=== PATIENT | female | born 1975 | race Caucasian/White ===

== ENCOUNTER 2018-05-29 04:24 | Inpatient (IN) ==
[2018-05-29] MEDS ORDERED: Morphine Inj 4 MG/ML Vial IM ONE (05:00)
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
[2018-05-29 06:30] LABS: Baso # (Auto) 0.1 th/mm3 (0.0-0.2); Baso % (Auto) 0.4 % (0.0-2.0); Eos % (Auto) 0.3 % (0.0-4.0); Hematocrit 42.2 % (35.0-46.0); Hemoglobin 14.9 gm/dL (11.6-15.3); Lymph % (Auto) 14.7 % (9.0-44.0); Mean Corpuscular HGB Conc 35.2 % (32.0-36.0); Mean Corpuscular Hemoglobin 33.1 pg (27.0-34.0); Mean Corpuscular Volume 94.2 fL (80.0-100.0); Mean Platelet Volume 8.1 fL (7.0-11.0); Mono # (Auto) 1.1 th/mm3 (0.0-0.9); Mono % (Auto) 8.2 % (0.0-8.0); Neut # (Auto) 10.2 th/mm3 (1.8-7.7); Neut % (Auto) 76.4 % (16.0-70.0); Platelet Count 250 th/mm3 (150-450); Red Blood Count 4.49 mil/mm3 (4.00-5.30); Red Cell Distribution Width 13.7 % (11.6-17.2); White Blood Count 13.4 th/mm3 (4.0-11.0)
[2018-05-29] MEDS ORDERED: Temazepam 15 MG Capsule PO PRN (07:12)
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
[2018-05-29 10:01] LABS: Amylase 26 U/L (25-115); Lipase 136 U/L (73-393)
[2018-05-29 10:04] LABS: Albumin 3.9 g/dL (3.4-5.0); Anion Gap 10 meq/L (5-15); Aspartate Aminotransferase 202 U/L (15-37); Blood Urea Nitrogen 12 mg/dL (7-18); Calcium 9.1 mg/dL (8.5-10.1); Carbon Dioxide 22.5 meq/L (21.0-32.0); Chloride 108 meq/L (98-107); Glomerular Filtration Rate Greater Than 89 mL/min (>89); Glucose,Random 93 mg/dL (74-106); Potassium 3.4 meq/L (3.5-5.1); Sodium 140 meq/L (136-145)
[2018-05-29 10:05] LABS: Alanine Aminotransferase 319 U/L (10-53)
[2018-05-29 10:07] LABS: Alkaline Phosphatase 53 U/L (45-117); Total Protein 7.6 g/dL (6.4-8.2)
[2018-05-29] MEDS: oxyCODONE/Acetaminophen 10/325 Tablet PO PRN ×2 (11:35→21:29)
[2018-05-29] MEDS: Morphine Inj 4 MG/ML Vial IV.PUSH PRN (11:35)
[2018-05-29] MEDS ORDERED: Lidocaine PF 1% Inj 5 ML Syringe INFILTRATN ONE (12:00)
[2018-05-29] MEDS ORDERED: Succinylcholine Inj 100 MG/5 ML Syringe IV.PUSH ONE (12:00)
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
[2018-05-29] MEDS ORDERED: Propofol Inj 500 MG/50 ML Vial ONE (13:38)
[2018-05-29] MEDS ORDERED: Ketamine Inj 500 MG/10 ML Vial ONE (13:39)
[2018-05-29] MEDS: Thrombin Topical Soln 5,000 UNIT Vial TOPICAL ONE (15:09)
[2018-05-29] MEDS: Bupivacaine/Epinephrine 0.5% Inj 50 ML Vial ONE (15:10)
[2018-05-29] MEDS: Lidocaine 1% Inj 50 ML Vial ONE (15:10)
[2018-05-29] MEDS: Gelatin Size 100 Topical Foam ONE (15:10)
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
[2018-05-29] MEDS ORDERED: fentaNYL Citrate Inj 100 MCG/2 ML Ampul ONE (18:34)
[2018-05-29] MEDS ORDERED: Morphine Inj 4 MG/ML Vial ONE (18:34)
[2018-05-29] MEDS ORDERED: *Meperidine Inj 25 MG/ML Vial PERIprocedural Use ONLY ONE (18:37)
[2018-05-29] MEDS ORDERED: *morphine SULFATE 10 MG/ML PERIprocedure ONLY ONE (18:52)
--- NOTE | 2018-05-29 18:52 | P.OP ---
- Preoperative Diagnosis (1) Closed compression fracture of lumbar vertebra (2) Closed compression fracture of thoracic vertebra Preoperative Diagnosis: L1 burst fracture with retropulsion and right leg pain and weakness Postoperative Diagnosis: L1 burst fracture with retropulsion and right leg pain and weakness Date of procedure: 05/29/18 Procedure: T11 to L3 posterior spinal fusion L1 laminectomy Helvetia Caplux System, 6.5 x 40 screws at T11, otherwise 6.5 x 45 screws skipping right L1 Titanium Galen 160mm bilaterally, Rods 5.5 system, 10cc bonegraft DBX with corticocancellous and autograft Anesthesia: JASWINDER Surgeon: Carlos Maza MD Estimated blood loss (mL): 400 Operation and Findings: Description of Procedure. Patient was brought to [facility]4 and the procedure was done under general anesthesia. Patient placed prone on the OSI bed with pads. Mid thoracolumbar spine was prepped and draped in the usual sterile fashion after carefully padding all pressure points. Fluoroscopy was used to plan incision from T11 to L3. Midline incision infiltrated with local, then opened sharply. Subperiosteal dissection carried down T11 to L3 bilaterally using monopolar cautery. Monitoring was used with MEP, SSEP and pedicle screw with baselines taken prior to flip and maintained throughout the procedure without change. Pedicle screws placed using the drill screw tap method starting at left T11 moving down to right L3, skipping right L1 due to the fracture. Pedicle screw monitoring was employed and due to low thresholds at left L1, right L2, left L3 , these were made more lateral with the final left L3 screw looking lateral, yet having good purchase. After securing rods and cap screws, L1 laminectomy performed with clear instability noted of right sided L1 facet joint which was decompressed to probe free nerve root and central canal at this level. Gelfoam placed over the exposed dura after irrigating with Vancomycin irrigation, and bone graft with DBX placed over the rods, followed by two drains exiting inferiorly and secured to the skin with nylon. Wound closed in layers with 0- Vicryl and 2-0 Vicryl for deep muscle fascia, superficial fascia, subcutaneous and verona for skin. Sterile dressings applied. Patient returned supine, extubated and taken to recovery in stable condition with same baseline exam ( right leg proximally grade 4/5 and remainder three limbs full strength). Dr. Maza present and scrubbed for the entire procedure.
[2018-05-29] MEDS ORDERED: *morphine SULFATE 4 MG/ML PERIprocedure ONLY ONE (19:16)
[2018-05-29 19:29] LABS: Albumin 2.3 g/dL (3.4-5.0); Total Protein 4.9 g/dL (6.4-8.2)
[2018-05-29 20:11] LABS: Amorphous Sediment,Urine Few /hpf; Bacteria,Urine Rare /hpf; Bilirubin,Urine Negative (Negative); Clarity,Urine Cloudy (Clear); Color,Urine Amber (Yellw/Straw); Glucose,Urine (UA) Negative (Negative); Leukocyte Esterase,Urine Negative (Negative); Mucus,Urine Few /lpf (Occasional); Nitrite,Urine Negative (Negative); Specific Gravity,Urine 1.049 (1.002-1.035); Squamous Epithelial Cell,Urine <1 /hpf (0-5)
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
[2018-05-30] MEDS: oxyCODONE/Acetaminophen 10/325 Tablet PO PRN ×4 (03:43→19:03)
[2018-05-30] MEDS: Bupivacaine/Epinephrine 0.5% Inj 50 ML Vial ONE (03:55)
[2018-05-30] MEDS: Thrombin Topical Soln 5,000 UNIT Vial TOPICAL ONE (03:56)
[2018-05-30] MEDS: Gelatin Size 100 Topical Foam ONE (03:56)
[2018-05-30] MEDS: Lidocaine 1% Inj 50 ML Vial ONE (03:56)
[2018-05-30 04:53] LABS: Alanine Aminotransferase 228 U/L (10-53); Albumin 3.1 g/dL (3.4-5.0); Alkaline Phosphatase 43 U/L (45-117); Anion Gap 9 meq/L (5-15); Aspartate Aminotransferase 137 U/L (15-37); Blood Urea Nitrogen 10 mg/dL (7-18); Calcium 7.9 mg/dL (8.5-10.1); Carbon Dioxide 22.4 meq/L (21.0-32.0); Chloride 107 meq/L (98-107); Glomerular Filtration Rate Greater Than 89 mL/min (>89); Glucose,Random 91 mg/dL (74-106); Potassium 4.5 meq/L (3.5-5.1); Total Protein 6.7 g/dL (6.4-8.2)
[2018-05-30 04:54] LABS: Sodium 138 meq/L (136-145)
[2018-05-30] MEDS: Morphine Inj 4 MG/ML Vial IV.PUSH PRN ×5 (06:49→23:16)
[2018-05-30] MEDS: Senna/Docusate Sodium 8.6/50 MG Tablet PO SCH ×2 (08:52→20:10)
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
[2018-05-30 11:13] LABS: Baso % (Auto) 0.3 % (0.0-2.0); Eos % (Auto) 0.1 % (0.0-4.0); Hematocrit 38.4 % (35.0-46.0); Hemoglobin 13.2 gm/dL (11.6-15.3); Lymph # (Auto) 2.4 th/mm3 (1.0-4.8); Lymph % (Auto) 15.4 % (9.0-44.0); Mean Corpuscular HGB Conc 34.4 % (32.0-36.0); Mean Corpuscular Volume 95.9 fL (80.0-100.0); Mean Platelet Volume 8.6 fL (7.0-11.0); Mono # (Auto) 1.4 th/mm3 (0.0-0.9); Mono % (Auto) 8.7 % (0.0-8.0); Neut # (Auto) 11.7 th/mm3 (1.8-7.7); Neut % (Auto) 75.5 % (16.0-70.0); Platelet Count 231 th/mm3 (150-450); Red Blood Count 4.01 mil/mm3 (4.00-5.30); Red Cell Distribution Width 13.4 % (11.6-17.2); White Blood Count 15.5 th/mm3 (4.0-11.0)
--- NOTE | 2018-05-30 12:35 | P.PNNS ---
Subjective Interval history: Doing well after surgery. Right leg pain and mobility improved. Now has back pain from surgery. Physical Exam Vital signs: Vital Signs 05/29/18 13:25 05/29/18 18:25 05/29/18 18:30 Temperature 97.4 F L Pulse Rate 90 94 H 94 H Respiratory Rate 21 16 16 Blood Pressure 107/88 99/61 L 103/65 Pulse Oximetry 98 96 95 05/29/18 18:45 05/29/18 19:00 05/29/18 20:00 Temperature Pulse Rate 92 H 94 H 91 H Respiratory Rate 16 16 16 Blood Pressure 115/77 119/84 122/86 Pulse Oximetry 99 98 96 05/29/18 22:00 05/29/18 22:55 05/30/18 00:00 Temperature 99.1 F 98.7 F Pulse Rate 94 H 95 H Respiratory Rate 19 24 Blood Pressure 122/81 113/74 Pulse Oximetry 97 94 L 96 05/30/18 04:00 05/30/18 08:00 05/30/18 08:10 Temperature 98.3 F 98 F Pulse Rate 84 88 Respiratory Rate 18 Blood Pressure 126/61 115/76 Pulse Oximetry 98 100 05/30/18 09:56 05/30/18 12:00 Temperature 98 F Pulse Rate 88 Respiratory Rate 19 18 Blood Pressure 111/65 Pulse Oximetry 96 Intake & Output 05/29/18 05/30/18 05/30/18 18:59 06:59 18:59 Intake Total 2300 / 2300 360 / 360 Output Total 1500 / 1500 1230 / 1230 110 / 110 Balance 800 / 800 -1230 / -1230 250 / 250 Weight 95.1 kg Intake: Oral 360 / 360 Anesthesia Amount 2300 / 2300 Output: Estimated Blood Loss 400 / 400 Urine Amount (Catheter) 1100 / 1100 1000 / 1000 Indwelling Urethral Catheter 1100 / 1100 1000 / 1000 Wound Drainage 230 / 230 110 / 110 # 1 40 / 40 100 / 100 # 2 Back 190 / 190 10 / 10 Narrative: A&O x 3 CN II-XII intact Motor 5/5 UE and BLE including RLE (hip flexion and knee extension) Back pain Dressing c/d/i, 2 drains (80/10 last few hours, 60/190 last shift) - Urinary Catheter Management Indwelling Urethral Catheter Cath placed during this visit: yes Reason for continuing: Other continuation reason Insertion date: 05/29/18 Insertion time: 14:19 Assessment and Plan - Plan Impression: T12 burst fracture without retropulsion L1 burst fracture with 30% canal compromise and right sided leg weakness and pain Plan: She is now pod#1. Keep lainez in for one more day Mobilize with PT/OT, activity as tolerated (does not need a brace) Keep drains in until output drops Agree with current pain regimen Appreciate primary cares of trauma service
[2018-05-31] MEDS: oxyCODONE/Acetaminophen 10/325 Tablet PO PRN ×6 (00:33→22:29)
[2018-05-31] MEDS: Morphine Inj 4 MG/ML Vial IV.PUSH PRN ×2 (03:23→23:09)
[2018-05-31] MEDS: Senna/Docusate Sodium 8.6/50 MG Tablet PO SCH ×2 (09:19→20:47)
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
--- NOTE | 2018-05-31 14:42 | P.PNNS ---
Subjective Interval history: Patient reports improving pain control. Limited with OOB. no BM Physical Exam Vital signs: Vital Signs 05/30/18 15:08 05/30/18 20:00 05/30/18 22:00 Temperature 98.8 F 98.7 F Pulse Rate 93 H 96 H Respiratory Rate 19 16 Blood Pressure 110/73 100/63 Pulse Oximetry 98 97 97 05/31/18 00:00 05/31/18 04:00 05/31/18 08:00 Temperature 99.3 F 99.8 F H 98.2 F Pulse Rate 105 H 101 H 89 Respiratory Rate 18 18 19 Blood Pressure 118/69 110/67 102/59 L Pulse Oximetry 93 L 94 L 94 L 05/31/18 09:49 05/31/18 12:00 Temperature 98.4 F Pulse Rate 91 H Respiratory Rate 18 18 Blood Pressure 111/76 Pulse Oximetry 93 L Intake & Output 05/30/18 05/31/18 05/31/18 18:59 06:59 18:59 Intake Total 360 / 360 Output Total 110 / 110 1190 / 1190 Balance 250 / 250 -1190 / -1190 Weight 95 kg 95 kg Intake: Oral 360 / 360 Output: Urine 1150 / 1150 Wound Drainage 110 / 110 40 / 40 # 1 100 / 100 30 / 30 # 2 Back 10 / 10 10 10 Other: # Voids 1 Date of Last Bowel Movement 05/30/18 # Bowel Movements 1 Weight On Admission 95 kg Narrative: E4 AOx3 Fcx4 5/5 strength in the UEs and LEs incision: CDI, SEVEN in place - Urinary Catheter Management Indwelling Urethral Catheter Cath placed during this visit: yes, but has since been removed by the nurse Reason for continuing: Decision to DC catheter Insertion date: 05/29/18 Insertion time: 14:19 Removal date: 05/31/18 Removal time: 09:30 Assessment and Plan - Plan Impression: 42 yo POD 2 T11-L3 fusion for T12 burst fracture -normalize: dc lainez, mobilize with PT/OT (activity as tolerated) -continue SEVEN -transition to oral pain meds -Appreciate management per trauma service
[2018-06-01] MEDS: oxyCODONE/Acetaminophen 10/325 Tablet PO PRN ×5 (03:33→21:10)
[2018-06-01] MEDS: Enoxaparin Inj 30 MG/0.3 ML Syringe SQ SCH ×3 (07:51→21:11)
[2018-06-01] MEDS: Senna/Docusate Sodium 8.6/50 MG Tablet PO SCH ×3 (07:51→21:10)
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
[2018-06-01] MEDS: Gabapentin 300 MG Capsule PO SCH ×2 (13:33→17:11)
[2018-06-02] MEDS: oxyCODONE/Acetaminophen 10/325 Tablet PO PRN ×4 (03:23→16:22)
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
[2018-06-02] MEDS: Enoxaparin Inj 30 MG/0.3 ML Syringe SQ SCH (08:17)
[2018-06-02] MEDS: Senna/Docusate Sodium 8.6/50 MG Tablet PO SCH (08:17)
[2018-06-02] MEDS: Gabapentin 300 MG Capsule PO SCH ×2 (08:17→12:05)
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
== END 2018-06-02 17:09 | disposition home or self-care (01) ==
LOC: NEPC 04:24 → NEDA 07:02 → NEDH 09:47 → N03 19:53 → N06 05-30 14:36
PROVIDERS: ADMIT Surgery; ATTEND Surgery